=== PATIENT | male | born 1950 | race Caucasian/White ===

== ENCOUNTER 2019-04-30 07:17 | Inpatient (IN) | payer OTHER, MEDICARE ==
[~2019-04-30] VITALS: Ht 172.7 cm; Wt 113.4 kg
[2019-04-30] MEDS ORDERED: LOSA50 PO (07:37)
[2019-04-30] MEDS ORDERED: HYDCHL25 PO (07:37)
[2019-04-30] MEDS ORDERED: METF500 PO (07:38)
[2019-04-30] MEDS ORDERED: SILD50TA PO (07:38)
[2019-04-30 08:07] LABS: BASOPHILS ABSOLUTE AUTO 0.02 K/mm3 (0.00-0.23); BASOPHILS PERCENT AUTO 0 % (0-2); EOSINOPHILS ABSOLUTE AUTO 0.21 K/mm3 (0.00-0.68); EOSINOPHILS PERCENT AUTO 4 % (0-6); Hematocrit 46.2 % (37.0-53.0); Hemoglobin 15.9 g/dL (13.5-17.5); IMMATURE GRAN ABSOLUTE AUTO 0.02 K/mm3 (0.00-0.10); IMMATURE GRAN PERCENT AUTO 0 % (0-1); LYMPHOCYTES ABSOLUTE AUTO 1.12 K/mm3 (0.84-5.20); LYMPHOCYTES PERCENT AUTO 23 % (21-46); MONOCYTES ABSOLUTE AUTO 0.44 K/mm3 (0.16-1.47); MONOCYTES PERCENT AUTO 9 % (4-13); Mean Corpuscular HGB 31.1 pg (26.0-34.0); Mean Corpuscular HGB Conc 34.4 g/dL (31.5-36.5); Mean Corpuscular Volume 90 fL (80-100); Mean Platelet Volume 10.1 fL (9.1-12.4); NEUTROPHILS ABSOLUTE AUTO 3.09 K/mm3 (1.96-9.15); NEUTROPHILS PERCENT AUTO 63 % (41-73); Platelet Count 199 K/mm3 (150-400); RDW Standard Deviation 39.4 fL (35.1-46.3); Red Blood Cell Count 5.12 M/mm3 (4.30-5.90)
[2019-04-30 08:19] LABS: Alanine Aminotransfer (ALT/SGP 48 U/L (12-78); Albumin, Blood 3.8 g/dL (3.4-5.0); Albumin/Globulin Ratio 1.1 (0.8-1.8); Alk Phos 51 U/L (50-136); Anion Gap 9 mmol/L (6-16); Aspartate Aminotrans (AST/SGOT 27 U/L (12-37); Bilirubin, Total 0.6 mg/dL (0.1-1.0); Blood Urea Nitrogen 14 mg/dL (8-24); Bun/Creatinine Ratio 16.8 (12.0-20.0); CO2, Blood 26 mmol/L (21-32); Calcium, Blood 9.1 mg/dL (8.5-10.1); Chloride, Blood 102 mmol/L (98-108); Creatinine, Blood 0.83 mg/dL (0.60-1.20); Ethanol (Alcohol), Blood, Med <3 mg/dL; Globulin, Blood 3.6 g/dL (2.2-4.0); Glomerular Filtration Rate >60 (60-); Glucose, Blood 329 mg/dL (70-99); Potassium, Blood 3.8 mmol/L (3.5-5.5); Sodium, Blood 137 mmol/L (136-145); Total Protein, Blood 7.4 g/dL (6.4-8.2)
[2019-04-30 08:22] LABS: International Normalized Ratio 0.98; Prothrombin Time Results 10.4 Sec (9.7-11.5)
[2019-04-30 08:24] LABS: U Amphetamine Screen Not Detected; U Barbituate Screen Not Detected; U Benzodiazapine Screen Not Detected; U Buprenorphine Screen Not Detected; U Cannabinoids Screen Not Detected; U Cocaine Screen Not Detected; U Methadone Screen Not Detected; U Methamphetamine Screen Not Detected; U Opiates Screen Not Detected; U Oxycodone Screen Not Detected; U Phencyclidine Screen Not Detected; U Propoxyphene Screen Not Detected
--- NOTE | 2019-04-30 18:37 | NUR ---
PT ADMITTED TO THE FLOOR THIS AM. PT ALERT AND ORIENTED. PT COOPERATIVE WITH CARE AND USES CALL LIGHT APPROPRIATLY. PT SPOUSE IN THE ROOM FOR MOST OF THE SHIFT. PT IS VERY WEAK IN HIS LLE AND HAS SLIGHT WEAKNESS IN HIS RUE OVER HIS LUE. PT CURRENTLY SITTING UP IN BED. WILL CONTINUE TO MONITOR.
[2019-05-01 05:11] LABS: BASOPHILS ABSOLUTE AUTO 0.04 K/mm3 (0.00-0.23); BASOPHILS PERCENT AUTO 1 % (0-2); EOSINOPHILS ABSOLUTE AUTO 0.18 K/mm3 (0.00-0.68); EOSINOPHILS PERCENT AUTO 3 % (0-6); Hematocrit 44.4 % (37.0-53.0); Hemoglobin 15.1 g/dL (13.5-17.5); IMMATURE GRAN ABSOLUTE AUTO 0.02 K/mm3 (0.00-0.10); IMMATURE GRAN PERCENT AUTO 0 % (0-1); LYMPHOCYTES ABSOLUTE AUTO 1.42 K/mm3 (0.84-5.20); LYMPHOCYTES PERCENT AUTO 23 % (21-46); MONOCYTES ABSOLUTE AUTO 0.54 K/mm3 (0.16-1.47); MONOCYTES PERCENT AUTO 9 % (4-13); Mean Corpuscular HGB 30.8 pg (26.0-34.0); Mean Corpuscular Volume 91 fL (80-100); Mean Platelet Volume 9.8 fL (9.1-12.4); NEUTROPHILS PERCENT AUTO 65 % (41-73); Platelet Count 199 K/mm3 (150-400); RDW Standard Deviation 39.9 fL (35.1-46.3)
--- NOTE | 2019-05-01 05:20 | NUR ---
SHIFT SUMMARY AOX4. LS CLEAR, DENIES SOB. NO C/O PAIN. SLIGHT NAUSEA W/MEALS. 2 ASSIST. TELE READS SINUS DIXIE 50'S. CONT PULSE OX. L FA AND R AC ARE SL. TUMS @ 0030. BLOOD GLUCOSE BEFORE MEALS. CPAP @ NIGHT. UNSURE OF DC PLAN AT THIS TIME.
[2019-05-01 05:39] LABS: Alanine Aminotransfer (ALT/SGP 45 U/L (12-78); Albumin, Blood 3.5 g/dL (3.4-5.0); Albumin/Globulin Ratio 1.1 (0.8-1.8); Alk Phos 48 U/L (50-136); Anion Gap 7 mmol/L (6-16); Aspartate Aminotrans (AST/SGOT 27 U/L (12-37); Bilirubin, Total 0.8 mg/dL (0.1-1.0); Blood Urea Nitrogen 12 mg/dL (8-24); Bun/Creatinine Ratio 14.5 (12.0-20.0); CHOL/HDL RATIO 5.2; CO2, Blood 27 mmol/L (21-32); Calcium, Blood 9.2 mg/dL (8.5-10.1); Chloride, Blood 104 mmol/L (98-108); Cholesterol 166 mg/dL (50-200); Creatinine, Blood 0.83 mg/dL (0.60-1.20); Globulin, Blood 3.3 g/dL (2.2-4.0); Glomerular Filtration Rate >60 (60-); Glucose, Blood 215 mg/dL (70-99); HDL Cholesterol 32 mg/dL (>39); LDL/HDL RATIO 2.6; Low Density Lipoprotein Chol 82 mg/dL (0-110); Potassium, Blood 3.7 mmol/L (3.5-5.5); Sodium, Blood 138 mmol/L (136-145); Total Protein, Blood 6.8 g/dL (6.4-8.2); Triglycerides 258 mg/dL (30-160); Very Low Density Lipoprot Chol 51 mg/dL (6-32)
[2019-05-01 15:20] LABS: Source, Urine Voided
[2019-05-01 15:54] LABS: Bilirubin, Urine Neg (Neg); Blood, Urine 5+ (Neg); Glucose Qualitative, Urine 4+ (Neg); Ketones, Urine 1+ (Neg); Leukocyte Esterase, Urine 1+ (Neg); Nitrite, Urine Neg (Neg); Protein, Urine Neg (Neg); Urobilinogen, Urine NORM (Normal)
[2019-05-01 16:40] LABS: Appearance, Urine Clear (Clear); Color, Urine Yellow (P-Yellow)
[2019-05-01 16:41] LABS: Bacteria Rare /hpf; Squamous Epithelial Cells Not Seen /hpf (Few)
--- NOTE | 2019-05-01 18:32 | NUR ---
PT HAS BEEN UP TO CHAIR AND BEDSIDE COMMODE SEVERAL TIMES TODAY. PT'S RIGHT SIDE IS EXTREMELY WEAK, UNABLE TO AMBULATE OR GRASP WITH RIGHT HAND. 2 PERSON TRANSFER WITH GAIT BELT. NO ACUTE CHANGES NOTED THIS SHIFT, WILL CONTINUE TO MONITOR AND REPORT TO ONCOMING RN
--- NOTE | 2019-05-02 04:25 | NUR ---
SHIFT SUMMARY NO ASSESSMENT CHANGES. NO C/O SOB, NAUSEA, OR PAIN. STILL SLOW TO RESPOND TO QUESTIONS, WORKING WITH SPEECH. STRONG 2 ASSIST. TELE READS SINUS DIXIE 52. L FA AND R AC ARE SL. BG BEFORE MEALS. CPAP @ NIGHT. SBP IN 180'S-170'S, PRN HYDRALAZINE FOR >200. PLAN IS TO DC TO SOME SORT OF [facility] OR [facility]ISTED LIVING, UNSURE OF WHEN.
[2019-05-02 05:10] LABS: BASOPHILS ABSOLUTE AUTO 0.03 K/mm3 (0.00-0.23); BASOPHILS PERCENT AUTO 0 % (0-2); EOSINOPHILS ABSOLUTE AUTO 0.21 K/mm3 (0.00-0.68); EOSINOPHILS PERCENT AUTO 3 % (0-6); Hematocrit 45.5 % (37.0-53.0); Hemoglobin 15.6 g/dL (13.5-17.5); IMMATURE GRAN ABSOLUTE AUTO 0.02 K/mm3 (0.00-0.10); IMMATURE GRAN PERCENT AUTO 0 % (0-1); LYMPHOCYTES ABSOLUTE AUTO 1.47 K/mm3 (0.84-5.20); LYMPHOCYTES PERCENT AUTO 18 % (21-46); MONOCYTES ABSOLUTE AUTO 0.66 K/mm3 (0.16-1.47); MONOCYTES PERCENT AUTO 8 % (4-13); Mean Corpuscular HGB Conc 34.3 g/dL (31.5-36.5); Mean Corpuscular Volume 91 fL (80-100); NEUTROPHILS ABSOLUTE AUTO 5.68 K/mm3 (1.96-9.15); NEUTROPHILS PERCENT AUTO 70 % (41-73); Platelet Count 200 K/mm3 (150-400); RDW Coefficient Variation 12.2 % (11.7-14.2); RDW Standard Deviation 40.5 fL (35.1-46.3); Red Blood Cell Count 5.03 M/mm3 (4.30-5.90); White Blood Cell Count 8.07 K/mm3 (4.00-11.30)
[2019-05-02 05:43] LABS: Anion Gap 6 mmol/L (6-16); Blood Urea Nitrogen 12 mg/dL (8-24); Bun/Creatinine Ratio 14.9 (12.0-20.0); CO2, Blood 26 mmol/L (21-32); Calcium, Blood 8.8 mg/dL (8.5-10.1); Chloride, Blood 108 mmol/L (98-108); Creatinine, Blood 0.81 mg/dL (0.60-1.20); Glomerular Filtration Rate >60 (60-); Glucose, Blood 190 mg/dL (70-99); Potassium, Blood 3.6 mmol/L (3.5-5.5); Sodium, Blood 140 mmol/L (136-145)
--- NOTE | 2019-05-02 15:44 | NUR ---
Advance Directive education/spiritual care visit conducted. Patient is sitting up in bed. Irene is present in the room. Patient is unable to easily communicate what he is thinking so Irene tells me that they would like the advance directive form and they will discuss it as a family. Irene also tells me that patient believes in God. I get approval from patient to pray. I gladly provide prayer. I will continue to remain available to patient and family.
--- NOTE | 2019-05-02 17:38 | NUR ---
PATIENT IS ALERT. ORIENTED TO HIS . HE HAS TROUBLE SPEAKING AND FORMING SENTENCES. HE USUALLY REPLIES WITH "YES" OR "NO" AND SOMETIMES IT DOES'NT SEEM LIKE HE UNDERSTANDS WHAT HE'S SAYING YES OR NO TO. HE HAS HAD FAMILY AT THE BEDSIDE ALL DAY. HIS IS CONCERNED WITH BURNING UPON URINATION. DR. LANCASTER ORDERED FENTANYL FOR THE PAIN. THE PATIENT IS ENCOURAGED TO DRINK WATER. HE EATS HIS MEALS WITH LITTLE ASSISTANCE. HE GOT UP TO THE RECLINER TODAY WITH OT/PT WITH 2PA, GAIT BELT AND FWW. HE WAS TOO WEAK AND TIRED TO TRANSFER BACK TO BED SO WE USED A LIFT. WILL CONTINUE TO MONITOR
[2019-05-03 04:57] LABS: BASOPHILS ABSOLUTE AUTO 0.03 K/mm3 (0.00-0.23); BASOPHILS PERCENT AUTO 0 % (0-2); EOSINOPHILS ABSOLUTE AUTO 0.09 K/mm3 (0.00-0.68); EOSINOPHILS PERCENT AUTO 1 % (0-6); Hematocrit 44.3 % (37.0-53.0); Hemoglobin 14.8 g/dL (13.5-17.5); IMMATURE GRAN ABSOLUTE AUTO 0.04 K/mm3 (0.00-0.10); IMMATURE GRAN PERCENT AUTO 0 % (0-1); LYMPHOCYTES ABSOLUTE AUTO 1.43 K/mm3 (0.84-5.20); LYMPHOCYTES PERCENT AUTO 16 % (21-46); MONOCYTES PERCENT AUTO 11 % (4-13); Mean Corpuscular HGB Conc 33.4 g/dL (31.5-36.5); Mean Corpuscular Volume 93 fL (80-100); Mean Platelet Volume 9.8 fL (9.1-12.4); NEUTROPHILS ABSOLUTE AUTO 6.62 K/mm3 (1.96-9.15); NEUTROPHILS PERCENT AUTO 72 % (41-73); Platelet Count 187 K/mm3 (150-400); RDW Standard Deviation 41.5 fL (35.1-46.3); Red Blood Cell Count 4.77 M/mm3 (4.30-5.90); White Blood Cell Count 9.21 K/mm3 (4.00-11.30)
--- NOTE | 2019-05-03 04:58 | NUR ---
CHEMICAL PROCESS ANALYST SUMMARY Patient slept well except when woken to turn or be changed. 3 episodes of large incontinence overnight. skin intact. patient only able to slowly respond with "yes". right arm flaccid and barely perceptible finger movement. right leg completely flaccid. patient able to swallow thin liquids without difficulty. slight right facial droop noted. in room very supportive and helpful
[2019-05-03 05:15] LABS: Anion Gap 6 mmol/L (6-16); Blood Urea Nitrogen 13 mg/dL (8-24); Bun/Creatinine Ratio 14.1 (12.0-20.0); CO2, Blood 27 mmol/L (21-32); Calcium, Blood 8.7 mg/dL (8.5-10.1); Chloride, Blood 103 mmol/L (98-108); Creatinine, Blood 0.93 mg/dL (0.60-1.20); Glomerular Filtration Rate >60 (60-); Glucose, Blood 192 mg/dL (70-99); Potassium, Blood 3.9 mmol/L (3.5-5.5); Sodium, Blood 136 mmol/L (136-145)
[2019-05-03] MEDS ORDERED: ACET325 PO (16:52)
[2019-05-03] MEDS ORDERED: ATOR40TA PO (16:53)
[2019-05-03] MEDS ORDERED: ASPI81CH PO (16:53)
[2019-05-03] MEDS ORDERED: CLOP75 PO (16:54)
[2019-05-03] MEDS ORDERED: KETOROLAC30 MG/1 ML IV (16:57)
[2019-05-03] MEDS ORDERED: METO25 PO (16:57)
[2019-05-03] MEDS ORDERED: IBUP400 PO (16:59)
--- NOTE | 2019-05-03 17:00 | NUR ---
REPORT GIVEN TO DEENA AT [facility]. PT UP IN CHAIR WAITING FOR MA TO ARRIVE TO PICK HIM UP. AT BEDSIDE ALL DAY. ABLE TO FEED HIMSELF. R SIDE FLACCID WITH R KNEE PAINFUL. TO CURB VIA W/C.
[2019-05-03] MEDS ORDERED: PANT40 PO (17:01)
== END 2019-05-03 15:42 | DRG 65 ==
LOC: ER 07:17 → MEDS 10:15 → ENPENDDIS 05-03 12:43 → MEDS 05-03 15:42
PROVIDERS: Emergency Medicine; Internal Medicine; Nurse Practitioner Acute Care; ADMIT Internal Medicine
DX: I63.9 Cerebral infarction, unspecified (principal); G81.91 Hemiplegia, unspecified affecting right dominant side; E11.65 Type 2 diabetes mellitus with hyperglycemia; I10 Essential (primary) hypertension; R47.01 Aphasia; M71.9 Bursopathy, unspecified; E11.42 Type 2 diabetes mellitus with diabetic polyneuropathy; G47.33 Obstructive sleep apnea (adult) (pediatric); E66.9 Obesity, unspecified; Z68.38 Body mass index [BMI] 38.0-38.9, adult
CPT/HCPCS: 36415; 70450; 70496; 70498; 71046; 73562-RT; 80048; 80053; 80061; 81001; 82947; 83036; 85025; 85610; 85730; 87071; 87075; 87077; 87086; 87186; 87205; 92507; 92523; 92610; 93005; 93010; 93306; 94762; 97110; 97112; 97162; 97166; 97530; 99285-25; G0480; J1650; J1885; J7030; Q9967

== ENCOUNTER 2019-06-29 17:57 | Emergency (ER) | payer OTHER ==
[~2019-06-29] VITALS: Ht 172.7 cm; Wt 97.1 kg
[~2019-06-29 17:57] MED LIST: ACET325 PO; ASPI81CH PO; ATOR40TA PO; CLOP75 PO; HYDCHL25 PO; IBUP400 PO; KETOROLAC30 MG/1 ML IV; LOSA50 PO; METF500 PO; METO25 PO; PANT40 PO; SILD50TA PO
[2019-06-29 18:19] LABS: BASOPHILS ABSOLUTE AUTO 0.02 K/mm3 (0.00-0.23); BASOPHILS PERCENT AUTO 0 % (0-2); EOSINOPHILS ABSOLUTE AUTO 0.25 K/mm3 (0.00-0.68); EOSINOPHILS PERCENT AUTO 3 % (0-6); Hematocrit 40.2 % (37.0-53.0); Hemoglobin 13.7 g/dL (13.5-17.5); IMMATURE GRAN ABSOLUTE AUTO 0.04 K/mm3 (0.00-0.10); IMMATURE GRAN PERCENT AUTO 1 % (0-1); LYMPHOCYTES ABSOLUTE AUTO 1.81 K/mm3 (0.84-5.20); LYMPHOCYTES PERCENT AUTO 22 % (21-46); MONOCYTES ABSOLUTE AUTO 0.67 K/mm3 (0.16-1.47); MONOCYTES PERCENT AUTO 8 % (4-13); Mean Corpuscular HGB 30.7 pg (26.0-34.0); Mean Corpuscular HGB Conc 34.1 g/dL (31.5-36.5); Mean Corpuscular Volume 90 fL (80-100); Mean Platelet Volume 8.8 fL (9.1-12.4); NEUTROPHILS ABSOLUTE AUTO 5.38 K/mm3 (1.96-9.15); NEUTROPHILS PERCENT AUTO 66 % (41-73); Platelet Count 339 K/mm3 (150-400); RDW Coefficient Variation 12.6 % (11.7-14.2); RDW Standard Deviation 41.2 fL (35.1-46.3); Red Blood Cell Count 4.46 M/mm3 (4.30-5.90); White Blood Cell Count 8.17 K/mm3 (4.00-11.30)
[2019-06-29 18:30] LABS: Alanine Aminotransfer (ALT/SGP 41 U/L (12-78); Albumin, Blood 2.8 g/dL (3.4-5.0); Albumin/Globulin Ratio 0.6 (0.8-1.8); Alk Phos 71 U/L (50-136); Anion Gap 7 mmol/L (6-16); Aspartate Aminotrans (AST/SGOT 21 U/L (12-37); Bilirubin, Total 0.4 mg/dL (0.1-1.0); Blood Urea Nitrogen 18 mg/dL (8-24); Bun/Creatinine Ratio 23.7 (12.0-20.0); CO2, Blood 27 mmol/L (21-32); Calcium, Blood 9.4 mg/dL (8.5-10.1); Chloride, Blood 102 mmol/L (98-108); Creatinine, Blood 0.76 mg/dL (0.60-1.20); Globulin, Blood 4.6 g/dL (2.2-4.0); Glomerular Filtration Rate >60 (60-); Glucose, Blood 125 mg/dL (70-99); Potassium, Blood 3.7 mmol/L (3.5-5.5); Sodium, Blood 136 mmol/L (136-145); Total Protein, Blood 7.4 g/dL (6.4-8.2)
== END 2019-06-29 21:14 | disposition home or self-care (01) ==
LOC: ER 17:57
PROVIDERS: Emergency Medicine
DX: R07.9 Chest pain, unspecified (principal); I10 Essential (primary) hypertension; E11.42 Type 2 diabetes mellitus with diabetic polyneuropathy; G47.33 Obstructive sleep apnea (adult) (pediatric); Z87.891 Personal history of nicotine dependence
CPT/HCPCS: 71045; 80053; 84484; 85025; 93005; 93010; 99285-25

== ENCOUNTER 2022-01-30 12:16 | Emergency (ER) | payer OTHER ==
[~2022-01-30] VITALS: Ht 172.7 cm; Wt 103.4 kg
== END 2022-01-30 14:50 | disposition home or self-care (01) ==
LOC: ER 12:16
DX: S09.90XA Unspecified injury of head, initial encounter (principal); I10 Essential (primary) hypertension; E11.9 Type 2 diabetes mellitus without complications; Z86.73 Personal history of transient ischemic attack (TIA), and cerebral infarction without residual deficits; Z79.82 Long term (current) use of aspirin; Z79.899 Other long term (current) drug therapy; Z87.891 Personal history of nicotine dependence; W19.XXXA Unspecified fall, initial encounter
CPT/HCPCS: 70450